=== PATIENT | male | born 1985 | race Caucasian/White ===

== ENCOUNTER → 2018-06-25 18:27 | Outpatient (CLI) | payer OTHER, SELFPAY ==
--- NOTE | 2018-06-25 18:30 | DI.RAD.S_ITS ---
PROCEDURE: XR ANKLE RT MIN 3V INDICATIONS: R ankle sprain x 1 month TECHNIQUE: 3 views of the ankle were acquired. COMPARISON: None. FINDINGS: Bones: No fractures or dislocations. There is slight widening of lateral ankle mortise, which may indicate a syndesmotic injury. No suspicious bony lesions. Soft tissues: No tibiotalar joint effusion. Achilles tendon appears normal. IMPRESSION: Slight widening of lateral ankle mortise. No acute fracture or dislocation. Finding may represent injury to the distal tibiofibular syndesmosis. If indicated, MRI of ankle can be done for further evaluation. Dictated by: Sylvain Polo M.D. on 06/25/2018 at 18:47 Approved by: Sylvain Polo M.D. on 06/25/2018 at 18:48
== END ==
PROVIDERS: Family Provider Internal Medicine; PCP Student in an Organized Health Care Education/Training Program; Visit Provider Physician Assistant
DX: M25.571 Pain in right ankle and joints of right foot (principal); S93.401D Sprain of unspecified ligament of right ankle, subsequent encounter
CPT/HCPCS: 73610

== ENCOUNTER → 2021-02-20 10:52 | Outpatient (CLI) | payer OTHER, SELFPAY ==
--- NOTE | 2021-02-20 10:53 | DI.MRI.S_ITS ---
PROCEDURE: MR LUMBAR SPINE WO CON INDICATIONS: Intervertebral disc disorders with radiculopathy TECHNIQUE: Noncontrast sagittal T1 spin echo and T2 fast echo, sagittal STIR, axial T1 and T2 fast spin echo through the lumbar spine. In cases with scoliosis, additional coronal T2 fast spin echo may be performed. COMPARISON: [facility], MR, MR LUMBAR SPINE WITHOUT CONTRAST, 05/11/2020, 8:19. [facility], CR, XR LUMBAR SPINE 2 OR 3 VIEWS, 02/16/2021, 13:37. FINDINGS: Image quality: Excellent. Alignment and Curvature: There is normal bony alignment. Bone Marrow: Marrow is of normal overall signal. No acute vertebral body compression fractures. Spinal Cord: Conus medullaris terminates at the L1 level. Visualized cord demonstrates normal signal and size. Paraspinous Soft Tissues: No paravertebral masses. T12-L1: Normal appearance. L1-L2: Normal appearance. L2-L3: Normal appearance. L3-L4: Disc has a normal appearance. Mild bilateral facet hypertrophy. No central stenosis. No neural foraminal narrowing. No neural compression. L4-L5: Disc has a normal appearance. Mild bilateral facet hypertrophy. No central stenosis. No neural foraminal narrowing. No neural compression. L5-S1: Slight loss of disc signal. Moderate-sized right central disc protrusion. Right central disc protrusion abuts and slightly compresses the traversing right S1 nerve root. Mild bilateral facet hypertrophy. No central stenosis. Mild bilateral neural foraminal narrowing. IMPRESSION: 1. Mild L5-S1 degenerative disc disease. 2. Mild L3-L4, L4-L5 and L5-S1 facet arthropathy. 3. No central stenosis. 4. Mild bilateral L5-S1 neural foraminal narrowing. 5. Moderate-sized right central L5-S1 disc protrusion which abuts and slightly compresses the traversing right S1 nerve root. Please correlate with clinical data. Dictated by: Jennifer Leal MD, PhD on 02/21/2021 at 6:08 Approved by: Jennifer Leal MD, PhD on 02/21/2021 at 6:12
== END ==
PROVIDERS: Family Provider Internal Medicine; PCP Student in an Organized Health Care Education/Training Program; Referring Provider Orthopaedic Surgery; Visit Provider Orthopaedic Surgery
DX: M51.16 Intervertebral disc disorders with radiculopathy, lumbar region (principal)
CPT/HCPCS: 72148

== ENCOUNTER → 2022-01-10 16:02 | Outpatient (CLI) | payer OTHER, SELFPAY ==
[2022-01-10 17:36] LABS: Hematocrit 39.8 % (41-53); Hemoglobin 13.7 g/dL (13.5-17.5); Mean Corpuscular HGB Conc 34.5 % (30-36); Mean Corpuscular Hemoglobin 27.9 PG (26-34); Mean Corpuscular Volume 80.8 fL (80-100); Platelet Count 248 X10^3/uL (150-400); Red Blood Cell Count 4.92 X10^6/uL (4.5-5.9); Red Cell Distribution Width 13.8 % (11.6-14.8); White Blood Cell Count 5.7 X10^3/uL (4.5-11.0)
[2022-01-10 17:55] LABS: BUN Creatinine Ratio 20.2 (6-22); Blood Urea Nitrogen 18 mg/dL (9-20); Calcium 9.1 mg/dL (8.4-10.2); Carbon Dioxide 28 mmol/L (22-32); Chloride 101 mmol/L (98-107); Estimated Glomerular Filt Rate > 60 mL/min (>60); Glucose 91 mg/dL (70-100); HEMOLYSIS 19 (0-50); Potassium 3.4 mmol/L (3.4-5.1); Sodium 139 mmol/L (137-145)
[2022-01-10 18:26] LABS: TSH w/ Reflex to FT4 2.03 uIU/mL (0.47-4.68)
== END ==
PROVIDERS: Family Provider Internal Medicine; PCP Student in an Organized Health Care Education/Training Program; Referring Provider Student in an Organized Health Care Education/Training Program; Visit Provider Student in an Organized Health Care Education/Training Program
DX: I10 Essential (primary) hypertension (principal)
CPT/HCPCS: 36415; 80048; 84443; 85027

== ENCOUNTER → 2022-01-31 13:56 | Outpatient (CLI) | payer OTHER, SELFPAY ==
--- NOTE | 2022-01-31 13:57 | DI.RAD.S_ITS ---
PROCEDURE: XR CERVICAL SPINE 2V OR 3V INDICATIONS: Hyperextension neck injury TECHNIQUE: 3 view(s) of the cervical spine were acquired. COMPARISON: None. FINDINGS: Bones: No fractures or dislocations to the T1 level. The lateral masses of C1 appear intact on the odontoid view. No suspicious bony lesions. Soft tissues: No prevertebral soft tissue swelling. IMPRESSION: Normal cervical spine Dictated by: Brandon Whipple M.D. on 01/31/2022 at 15:10 Approved by: Brandon Whipple M.D. on 01/31/2022 at 15:11
== END ==
PROVIDERS: Family Provider Internal Medicine; PCP Student in an Organized Health Care Education/Training Program; Referring Provider Student in an Organized Health Care Education/Training Program; Visit Provider Student in an Organized Health Care Education/Training Program
DX: S19.9XXA Unspecified injury of neck, initial encounter (principal); X58.XXXA Exposure to other specified factors, initial encounter
CPT/HCPCS: 72040

== ENCOUNTER → 2023-09-25 17:11 | Outpatient (CLI) | payer OTHER, SELFPAY ==
--- NOTE | 2023-09-25 | DI.MRI.S_ITS ---
PROCEDURE: MR LUMBAR SPINE WO CON INDICATIONS: RADICULOPATHY TECHNIQUE: Noncontrast sagittal T1 spin echo and T2 fast echo, sagittal STIR, and T2 fast spin echo through the lumbar spine. In cases with scoliosis, additional coronal T2 fast spin echo may be performed. COMPARISON: [facility], CR, XR LUMBAR SPINE 2 OR 3 VIEWS, 08/09/2023, 9:07. FINDINGS: Image quality: Excellent. Alignment and Curvature: There is normal bony alignment. Bone Marrow: Marrow is of normal overall signal. No acute vertebral body compression fractures. Spinal Cord: Conus medullaris terminates at the L1 level. Visualized cord demonstrates normal signal and size. Paraspinous Soft Tissues: No paravertebral masses. T12-L1: Normal appearance. L1-L2: Very early facet hypertrophy. No canal stenosis or foraminal stenosis. L2-L3: Mild facet hypertrophy. No canal stenosis or foraminal stenosis. L3-L4: Minimal disc bulge. Mild facet hypertrophy. No canal stenosis or foraminal stenosis. L4-L5: Facet hypertrophy. No canal stenosis. [id number] bilateral foraminal stenosis. L5-S1: There is annulus tear that it occurs in the region of the right lateral recess with associated mild broad-based right posterior disc protrusion which mildly posteriorly displaces the right S1 nerve root in the right lateral recess. Reference sagittal T2 image 5 of series 2 and axial T2 image 33 of series 5. Facet hypertrophy. No central canal stenosis or foraminal stenosis. IMPRESSION: 1. There is multilevel underlying facet arthropathy. 2. At L5-S1, there is annulus tear plus broad-based right posterior disc protrusion, which mildly posteriorly displaces the right S1 nerve root in the right lateral recess. Recommend correlation for presence or absence of right S1 radiculopathy. 3. No central canal stenosis or foraminal nerve root impingement. Dictated by: Raj De Dios M.D. on 09/26/2023 at 8:17 Approved by: Raj De Dios M.D. on 09/26/2023 at 8:22
== END ==
PROVIDERS: Family Provider Internal Medicine; PCP Student in an Organized Health Care Education/Training Program; Referring Provider Orthopaedic Surgery Orthopaedic Surgery of the Spine; Visit Provider Orthopaedic Surgery Orthopaedic Surgery of the Spine
DX: M47.26 Other spondylosis with radiculopathy, lumbar region (principal); M51.17 Intervertebral disc disorders with radiculopathy, lumbosacral region
CPT/HCPCS: 72148

== ENCOUNTER → 2024-01-16 15:41 | Outpatient (CLI) | payer OTHER, SELFPAY ==
--- NOTE | 2024-01-16 15:42 | DI.MRI.S_ITS ---
PROCEDURE: MR HIP LT WO CON INDICATIONS: Chronic left hip pain TECHNIQUE: Noncontrast coronal T1 spin echo and STIR through the bony pelvis. Coronal and axial T2 fast spin echo with fat saturation, sagittal T1 spin echo, and oblique axial T2 fast spin echo with fat saturation through the hip. COMPARISON: None. FINDINGS: Image quality: Excellent. Bones and joints: Bone marrow of the pelvic ring and proximal femurs show normal signal throughout. No intraosseous lesions or fractures. No avascular necrosis of the femoral heads. The visualized lower lumbar spine appears normally aligned. Tendons and ligaments: The left iliopsoas, adductor, hamstring tendon are unremarkable. The left gluteal minimus and gluteal medius tendon are unremarkable. Labrum and cartilage: Anterior superior tear (series 6, image 9). No focal chondral defect . Soft tissues: Unremarkable IMPRESSION: Anterior superior labral tear of the left hip. Dictated by: Aspen Coats M.D. on 01/16/2024 at 17:59 Approved by: Aspen Coats M.D. on 01/16/2024 at 18:06
== END ==
PROVIDERS: Family Provider Internal Medicine; PCP Student in an Organized Health Care Education/Training Program; Referring Provider Physician Assistant; Visit Provider Physician Assistant
DX: S73.192A Other sprain of left hip, initial encounter (principal); M25.552 Pain in left hip
CPT/HCPCS: 73721

== ENCOUNTER → 2024-12-20 11:25 | Outpatient (CLI) | payer OTHER, SELFPAY ==
[2024-12-20 12:03] LABS: Alanine Aminotransferase 30 IU/L (<50); Albumin Globulin Ratio 1.8 (1.0-2.8); Alkaline Phosphatase 52 U/L (38-126); Aspartate Aminotransferase 29 IU/L (17-59); BUN Creatinine Ratio 17.6 (6-22); Bilirubin Total 0.8 mg/dL (0.2-1.3); Blood Urea Nitrogen 18 mg/dL (9-20); Calcium 9.9 mg/dL (8.4-10.2); Carbon Dioxide 25 mmol/L (22-32); Chloride 101 mmol/L (98-107); Cholesterol 232 mg/dL (140-199); Estimated Glomerular Filt Rate > 60 mL/min (>60); Globulin 2.8 g/dL (1.7-4.1); Glucose 107 mg/dL (70-100); HDL Cholesterol 60 mg/dL (40-60); HEMOLYSIS 17 (0-50); LDL Cholesterol Calculated 145 mg/dL (<100); Potassium 4.3 mmol/L (3.4-5.1); Sodium 137 mmol/L (137-145); Total Protein 7.8 g/dL (6.3-8.2); Triglycerides 135 mg/dL (35-150)
== END ==
PROVIDERS: Family Provider Internal Medicine; PCP Family Medicine; Referring Provider Family Medicine; Visit Provider Family Medicine
DX: I10 Essential (primary) hypertension (principal); N52.9 Male erectile dysfunction, unspecified; R68.82 Decreased libido
CPT/HCPCS: 36415; 80053; 80061; 84402; 84403

== ENCOUNTER → 2025-07-05 11:41 | Outpatient (CLI) | payer OTHER, SELFPAY ==
--- NOTE | 2025-07-05 11:45 | DI.RAD.S_ITS ---
PROCEDURE: XR KNEE RT 3V INDICATIONS: Right knee pain TECHNIQUE: 3 views of the knee were acquired. COMPARISON: None. FINDINGS: Bones: No fractures or dislocations. No suspicious bony lesions. Soft tissues: No joint effusion. No suspicious soft tissue calcifications. IMPRESSION: No acute bony abnormality or significant effusion. Dictated by: Pee Parker M.D. on 07/05/2025 at 11:06 Approved by: Pee Parker M.D. on 07/05/2025 at 11:06
== END ==
PROVIDERS: Family Provider Internal Medicine; PCP Family Medicine; Referring Provider Family Medicine; Visit Provider Registered Nurse
DX: M25.561 Pain in right knee (principal)
CPT/HCPCS: 73562

== ENCOUNTER → 2025-08-19 07:54 | Outpatient (CLI) | payer OTHER, SELFPAY ==
--- NOTE | 2025-08-19 07:55 | DI.MRI.S_ITS ---
PROCEDURE: MR KNEE RT WO CON INDICATIONS: clicking and popping TECHNIQUE: Noncontrast sagittal PD fast spin echo and T2 fast spin echo with fat saturation, sagittal 3-D FLASH with fat saturation; coronal T1 spin echo and PD fast spin echo with fat saturation, and axial PD fast spin echo with fat saturation through the knee. COMPARISON: None. FINDINGS: Image quality: Subtle T2 hyperintense signal involving posterior horn of medial meniscus without definite articular surface extension to meet the criteria for focal meniscal tear. The lateral meniscus is intact. Menisci: The medial and lateral menisci demonstrate normal morphology and internal signal. The meniscal root ligaments appear intact. Cruciate ligaments: The anterior and posterior cruciate ligaments appear intact. Medial structures: The medial collateral ligament appears thickened with intrasubstance T2 hyperintense signal and surrounding edema near its femoral insertion. Visualized portions of the pes anserinus tendons appear normal. No abnormal bursal fluid. Lateral structures: The lateral collateral ligament, long and short heads of the biceps femoris tendon appear intact. The popliteus tendon appears intact. Iliotibial band appears normal. Anterior structures: Distal quadriceps tendinosis at its superior patellar insertion is seen. Patellar tendon is intact. Patellar position is normal. Bones and cartilage: No bone marrow contusions or fractures. 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 Joint space: There is small knee joint fluid. No Louie's cyst. Normal appearing synovial plicae are incidentally noted. IMPRESSION: 1. Moderate grade partial-thickness tear involving medial collateral ligament near its femoral insertion. No full-thickness ligament rupture. 2. The cruciate ligaments are intact. 3. 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 No MR evidence of focal meniscal tear. 4. Distal quadriceps tendinosis. 5. Low-grade chondromalacia in medial femoral tibial compartment and patellofemoral compartment as above. No acute fracture or dislocation. Small joint effusion, no loose bodies. Dictated by: Sylvain Polo M.D. on 08/19/2025 at 9:19 Approved by: Sylvain Polo M.D. on 08/19/2025 at 9:22
== END ==
LOC: MRI 07:54
PROVIDERS: Family Provider Internal Medicine; PCP Family Medicine; Referring Provider Physician Assistant Surgical; Visit Provider Physician Assistant Surgical
DX: S83.411A Sprain of medial collateral ligament of right knee, initial encounter (principal); M94.261 Chondromalacia, right knee; M25.461 Effusion, right knee; M25.561 Pain in right knee
CPT/HCPCS: 73721